=== PATIENT | female | born 1960 | race Caucasian/White ===

== ENCOUNTER → 2018-12-10 | Outpatient (CLI) | payer BC ==
--- NOTE | 2018-12-10 14:44 | US ---
EXAMINATION TYPE: US transvaginal DATE OF EXAM: 12/10/2018 COMPARISON: NONE CLINICAL HISTORY: N95.0 POST MENOPAUSAL, BLEEDING. 4 days of bleeding and cramping in october 2018, 0, history of uterine ablation. TECHNIQUE: Transvaginal exam. Date of LMP: 7 years ago EXAM MEASUREMENTS: Uterus: 7.4 x 3.2 x 4.8 cm Endometrial Stripe: 1.2 cm Right Ovary: not seen Left Ovary: not seen Difficult and limited study due to patient body habitus 1. Uterus: anteverted, heterogeneous, multiple nabothian cysts with largest measuring 1.9cm 2. Endometrium: thickened, fluid seen within endocervical canal 3. Right Ovary: not seen due to overlying bowel gas 4. Left Ovary: not seen due to overlying bowel gas 5. Bilateral Adnexa: wnl 6. Posterior cul-de-sac: wnl IMPRESSION: 1. Endometrial thickening. 2. Uterine myometrial heterogeneity may reflect small leiomyomatous change. 3. Cervical nabothian cysts.
== END ==
LOC: RADUSWWP 12:51
PROVIDERS: ATTEND Family Medicine
DX: N88.8 Other specified noninflammatory disorders of cervix uteri (principal); R93.89 Abnormal findings on diagnostic imaging of other specified body structures
CPT/HCPCS: 76830

== ENCOUNTER 2019-03-08 06:37 | Day surgery (SDC) | payer BC ==
[2019-03-03 11:54] VITALS: BMI 57.6
--- NOTE | 2019-03-07 16:14 | P.HPOB ---
History of Present Illness H&P Date: 03/07/19 Chief Complaint: Postmenopausal bleeding with thickened endometrium Nessa is a 5-year-old female with some postmenopausal bleeding and history of simple hyperplasia. Ultrasound done in October showed a 1.2 semireclining therefore a D&C with hysteroscopy or without hysteroscopy depending on ability to cannulate the cervix will be performed. Risks/benefits/alternatives to this procedure were discussed with the patient in detail and all questions were answered for her prior to proceeding to the operative room. On physical exam this is a morbidly obese female whose HEENT is unremarkable. Her heart is regular her lungs are clear. Abdomen is soft and nontender positive bowel sounds are noted. She did receive surgical clearance from her primary care provider Dr. Cohen. All questions are answered for her at this time and will plan to move forward with a D&C with or without hysteroscopy depending on positioning. Past Medical History Past Medical History: Hypertension, Osteoarthritis (OA), Sleep Apnea/CPAP/BIPAP Additional Past Medical History / Comment(s): hx. heart murmur, uses CPAP, poss. colitis History of Any Multi-Drug Resistant Organisms: None Reported Additional Past Surgical History / Comment(s): D & C Past Anesthesia/Blood Transfusion Reactions: No Reported Reaction Smoking Status: Never smoker - Past Family History Sister(s) Family Medical History: Cancer Medications and Allergies Home Medications Medication Instructions Recorded Confirmed Type Allopurinol [Zyloprim] 300 mg PO DAILY 03/03/19 03/03/19 History Celecoxib [CeleBREX] 200 mg PO DAILY 03/03/19 03/03/19 History Escitalopram [Lexapro] 20 mg PO DAILY 03/03/19 03/03/19 History Metaxalone [Skelaxin] 400 mg PO DAILY PRN 03/03/19 03/03/19 History Metoprolol Succinate (ER) [Toprol 50 mg PO DAILY 03/03/19 03/03/19 History Xl] Allergies Allergy/AdvReac Type Severity Reaction Status Date / Time No Known Allergies Allergy Verified 03/03/19 10:32 Exam Osteopathic Statement: *. No significant issues noted on an osteopathic structural exam other than those noted in the History and Physical/Consult.
[~2019-03-08 06:37] MED LIST: DEXAMETHASONE SOD PHOSPHATE 10 MG/ML 1 ML VIAL IV ONE; HYDROmorphone 0.5 MG/0.5 ML SYRINGE IVP PRN; LACTATED RINGERS 1,000 ML IV SCH; MIDAZOLAM (PF) 2 MG/2 ML VIAL IV PRN; ONDANSETRON 4 MG/2 ML VIAL IVP ONE; Pre Op ABX Message 1 EACH MISC MISCELLANE ONE; SCOPOLAMINE 1.5MG/72HR PATCH TRANSDERM ONE
[2019-03-08 07:07] VITALS: RESP 16
[2019-03-08] MEDS ORDERED: LIDOCAINE 1% 20 ML VIAL (10MG/ML) FOR IV START INTRADERMA ONE (07:12)
[2019-03-08] MEDS ORDERED: KETOROLAC 30 MG/ML 1 ML VIAL ONE (08:03)
[2019-03-08] MEDS ORDERED: fentaNYL (PF) 50 MCG/ML 2 ML AMP ONE (08:03)
[2019-03-08] MEDS ORDERED: LIDOCAINE 1% INJ 10MG/ML (20 ML MDV) ONE (08:03)
[2019-03-08] MEDS ORDERED: PROPOFOL 10 MG/ML 20 ML VIAL IV ONE (08:03)
[2019-03-08] MEDS ORDERED: MIDAZOLAM 2 MG/2 ML VIAL ONE (08:03)
[2019-03-08] MEDS ORDERED: SUCCINYLCHOLINE CHLORIDE VIAL 200 MG/10 ML VIAL IV ONE (08:03)
--- NOTE | 2019-03-08 08:34 | P.OP ---
Date of Procedure: 03/08/19 Preoperative Diagnosis: Postmenopausal bleeding Postoperative Diagnosis: same Procedure(s) Performed: D&C with Pap smear Anesthesia: GIGI Surgeon: Sulaiman Valle Estimated Blood Loss (ml): 5 Pathology: other (Pap smear and uterine curettings) Condition: stable Disposition: same day Operative Findings: Morbidly obese making the exam very difficult and due to positioning issues and need for some speak with the surgery hysteroscopy was not performed Description of Procedure: Patient was taken to the operating suite where general anesthetic was found be adequate. She was prepped and draped in normal sterile fashion and placed in dorsal lithotomy position. Initially a speculum was inserted into the vagina and a serial tooth tenaculum was used to grasp the anterior lip of cervix a Pap smear was then obtained with ECC. Once this was accomplished cervix was dilated and sharp curettings of the endometrium were obtained. All tissues collected placed on Telfa and sent to pathology for evaluation. Due to her morbid obesity and difficulty positioning as well as my concern over her being on a ventilator for an extended period time a hysteroscopy was not performed. Once procedure was completed instruments were removed. Sponge, lap, needle counts were all correct 2. Patient was then taken to the recovery room in stable and satisfactory condition. Plan - Discharge Summary Discharge Rx Participant: Yes New Discharge Prescriptions: No Action Metoprolol Succinate (ER) [Toprol Xl] 50 mg PO DAILY Escitalopram [Lexapro] 20 mg PO DAILY Celecoxib [CeleBREX] 200 mg PO DAILY Allopurinol [Zyloprim] 300 mg PO DAILY Metaxalone [Skelaxin] 400 mg PO DAILY PRN PRN Reason: Muscle Spasm Discharge Medication List Allopurinol [Zyloprim] 300 mg PO DAILY 03/03/19 [History] Celecoxib [CeleBREX] 200 mg PO DAILY 03/03/19 [History] Escitalopram [Lexapro] 20 mg PO DAILY 03/03/19 [History] Metaxalone [Skelaxin] 400 mg PO DAILY PRN 03/03/19 [History] Metoprolol Succinate (ER) [Toprol Xl] 50 mg PO DAILY 03/03/19 [History] Follow up Appointment(s)/Referral(s): Sulaiman Valle DO [Doctor of Osteopathic Medicine] - 10 Days Activity/Diet/Wound Care/Special Instructions: No heavy lifting, limit stairs and driving, and pelvic rest. If any high temperatures, heavy bleeding, or severe pain call my office Discharge Disposition: HOME SELF-CARE
[2019-03-08 08:47] VITALS: TEMP 97.4
[2019-03-08 10:30] VITALS: BP 146/82
[2019-03-08 10:32] VITALS: PULSE 71
== END 2019-03-08 10:45 | disposition home or self-care (01) ==
LOC: OR 06:37
PROVIDERS: ATTEND Obstetrics & Gynecology
DX: N85.02 Endometrial intraepithelial neoplasia [EIN] (principal); E66.01 Morbid (severe) obesity due to excess calories; Z68.43 Body mass index [BMI] 50.0-59.9, adult; I10 Essential (primary) hypertension; M19.90 Unspecified osteoarthritis, unspecified site; G47.30 Sleep apnea, unspecified; Z99.89 Dependence on other enabling machines and devices; Z79.899 Other long term (current) drug therapy
CPT/HCPCS: 88305; 58120; J2250; J0330; J1100; J2405; J2001; J3010; J1885; J2704

== ENCOUNTER → 2019-05-05 | Outpatient (CLI) | payer BC ==
--- NOTE | 2019-05-05 11:44 | EST ---
EXERCISE STRESS DATE OF SERVICE: 05/05/2019 AGE: 59 SEX: Female HT: 62 WT: 315 PROTOCOL: Anthony STAGE: I DURATION OF EXERCISE: 3 minutes HEART RATE REST: 96 BLOOD PRESSURE REST: 158/89 MAXIMUM HEART RATE ACHIEVED: 146 MAXIMUM BLOOD PRESSURE: 184/85 85% MPHR: 136 100% MPHR: 160 METS: 2.2 INDICATIONS: Pre-op. CLINICAL INFORMATION: Baseline rhythm is sinus mechanism, rate of 96, normal axis and intervals, cannot exclude inferior myocardial infarction. Baseline blood pressure 158/89 mmHg. Patient exercised on Anthony protocol for 3 minutes reaching a peak rate 146 beats per minute which is equal to 91% maximum predicted heart rate. Peak blood pressure 184/85 mmHg. Test was terminated secondary to fatigue. There was no chest pain. Electrocardiograph monitoring revealed no evidence of diagnostic ischemic ST deviation. CONCLUSION: 1. Poor exercise tolerance. 2. No chest discomfort. 3. Normal electrocardiograph response to exercise with no evidence of exercise induced ischemia. MMODL / IJN: [id number] /
== END | disposition home or self-care (01) ==
LOC: RADNMMAIN 10:21
PROVIDERS: ATTEND Family Medicine
DX: Z01.818 Encounter for other preprocedural examination (principal); N85.00 Endometrial hyperplasia, unspecified
CPT/HCPCS: 93017

== ENCOUNTER → 2019-05-05 | Outpatient (CLI) | payer BC ==
--- NOTE | 2019-05-05 12:37 | XR ---
EXAMINATION TYPE: XR chest 2V DATE OF EXAM: 05/05/2019 COMPARISON: NONE TECHNIQUE: PA and lateral views submitted. HISTORY: Presurgical FINDINGS: The lungs are clear and there is no pneumothorax, pleural effusion, or focal pneumonia. Arthropathy of the AC joints. Hypertrophic and degenerative change of the spine. IMPRESSION: 1. No acute process.
--- NOTE | 2019-05-05 13:28 | CT ---
EXAMINATION TYPE: CT abdomen pelvis wo/w con DATE OF EXAM: 05/05/2019 COMPARISON: Ultrasound 2519 HISTORY: Endometriosis, Pre-op for hysterectomy CT DLP: 5024.3 mGycm Automated exposure control for dose reduction was used. CONTRAST: CT scan of the abdomen pelvis is performed without and with IV Contrast, patient injected with 100 mL of Isovue 300. FINDINGS- LUNG BASES- No significant abnormality is appreciated. LIVER/GB-there are small gallstones noted.. PANCREAS- No gross abnormality is seen. SPLEEN- No gross abnormality is seen. ADRENALS- No gross abnormality is seen. KIDNEYS/BLADDER- no hydronephrosis or nephrolithiasis. There is a lower pole right renal lesion measu ring 1.4 cm and measuring 10 Hounsfield units compatible with a simple cyst.. BOWEL- no bowel dilatation. Normal appendix. LYMPH NODES- No greater than 1cm abdominal or pelvic lymph nodes areappreciated. OSSEOUS STRUCTURES-hypertrophic and degenerative change of the vertebral column with vacuum disc and multilevel facet arthropathy.. OTHER- atherosclerotic changes aorta. No evidence of aneurysm. No free fluid. There is an anterior a bdominal wall hernia containing portions of colon. The uterus is somewhat lobulated is prominence of the endocervical canal. Endometrium is not seen by CT scan. IMPRESSION- 1. Uterine lower segment and endocervical canal are prominent. Correlate clinically. Endometrium is n ot seen by CAT scan. No pathologic adenopathy. 2. There is a anterior abdominal wall hernia containing a segment of the colon. No definite obstructi on correlate clinically. 3. Cholelithiasis.
== END | disposition home or self-care (01) ==
LOC: RADCTMAIN 10:32
PROVIDERS: ATTEND Obstetrics & Gynecology
DX: K43.9 Ventral hernia without obstruction or gangrene (principal); K80.20 Calculus of gallbladder without cholecystitis without obstruction; N85.00 Endometrial hyperplasia, unspecified
CPT/HCPCS: 71046; 74178; Q9967

== ENCOUNTER → 2019-06-30 | Outpatient (CLI) | payer BC ==
--- NOTE | 2019-06-30 14:12 | CT ---
EXAMINATION TYPE: CT abdomen wo con DATE OF EXAM: 06/30/2019 COMPARISON: 05/05/2019 HISTORY: Abdominal wall infection from umbilical hernia repair. CT DLP: 1666 mGycm Automated exposure control for dose reduction was used. TECHNIQUE: Helical acquisition of images was performed from the lung bases through the top of iliac crest to include entire abdomen. CONTRAST: Performed with Oral Contrast and without IV contrast. FINDINGS: LUNG BASES: No significant abnormality is appreciated. LIVER/GB: No significant abnormality is appreciated. Redemonstration of calcification near the nondep endent portion of the lower fundus, similar to 05/05/2019 PANCREAS: No significant abnormality is seen. SPLEEN: No significant abnormality is seen. ADRENALS: No significant abnormality is seen. KIDNEYS: No significant abnormality is seen. Stable inferior pole right kidney cyst. BOWEL: No significant abnormality is seen. LYMPH NODES: No significant abnormality is appreciated. OSSEOUS STRUCTURES: No significant abnormality is seen. FREE AIR: No free air is visualized. OTHER: Interval postsurgical changes of ventral wall abdominal hernia repair which is only partially visualized on the current exam. There is a midline surgical scar, but there does not appear to be any fluid collection. Mild thickening and fat stranding is seen of the most inferior portion of the ante rior rectus sheath. IMPRESSION: POSTSURGICAL CHANGES OF MITRAL WALL ABDOMINAL HERNIA REPAIR WHICH IS ONLY PARTIALLY VISUALIZED. NO EV IDENCE OF ABSCESS ON THE CURRENT FILMS, BUT MILD THICKENING AND STRANDING AT THE INFERIOR RECTUS VUONG TH. IF FURTHER EVALUATION IS REQUIRED CT OF THE PELVIS MAY BE PERFORMED.
== END | disposition home or self-care (01) ==
LOC: RADCTMAIN 12:27
PROVIDERS: ATTEND Surgery
DX: K62.89 Other specified diseases of anus and rectum (principal)
CPT/HCPCS: 74150

== ENCOUNTER 2019-11-29 07:49 | Day surgery (SDC) | payer BC, OTHER ==
[2019-11-28 08:11] VITALS: BMI 64.0
[~2019-11-29 07:49] MED LIST changes: -DEXAMETHASONE SOD PHOSPHATE 10 MG/ML 1 ML VIAL IV ONE; -HYDROmorphone 0.5 MG/0.5 ML SYRINGE IVP PRN; +LIDOCAINE 1% 20 ML VIAL (10MG/ML) FOR IV START INTRADERMA PRN; -MIDAZOLAM (PF) 2 MG/2 ML VIAL IV PRN; -ONDANSETRON 4 MG/2 ML VIAL IVP ONE; -Pre Op ABX Message 1 EACH MISC MISCELLANE ONE; -SCOPOLAMINE 1.5MG/72HR PATCH TRANSDERM ONE
[2019-11-29 08:42] VITALS: TEMP 97.9
[2019-11-29] MEDS ORDERED: PROPOFOL 10 MG/ML 20 ML VIAL IV ONE (09:54)
--- NOTE | 2019-11-29 10:33 | P.PCN ---
Date of Procedure: 11/29/19 Description of Procedure: BRIEF HISTORY: Patient is a 59-year-old female who presents for outpatient colonoscopy for screening malignant neoplasm colon. Patient denies any change in bowel habits, blood per rectum or abdominal pain. No prior colonoscopies reported. No family history of colon cancer. PROCEDURE PERFORMED: Colonoscopy with polypectomy . PREOPERATIVE DIAGNOSIS: Screening for malignant neoplasm colon, no prior colonoscopies reported. ESTIMATED BLOOD LOSS: Minimal. IV sedation per Anesthesia. PROCEDURE: After informed consent was obtained, the patient, was brought into the endoscopy unit. IV sedation was administered by Anesthesia under continuous monitoring. Digital rectal examination was normal. Initially the Olympus CF-190 flexible video colonoscope was then inserted in the rectum, gradually advanced into the cecum without any difficulty. Careful examination was performed as the scope was gradually being withdrawn. Ileocecal valve and the appendiceal orifice were visualized and appeared normal. Prep was excellent. Mucosa of the cecum, ascen ding colon, transverse colon, descending colon, sigmoid colon, and rectum appeared normal. A few scattered small diverticula noted in the sigmoid colon. Diminutive 2 mm descending colon polyp removed with cold forcep polypectomy. Diminutive 1 mm sigmoid polyp removed with cold forcep polypectomy. Flat 11 mm rectal polyp removed with cold snare polypectomy. Retroflexion was performed in the rectum and no lesions were seen. The patient tolerated the procedure well. IMPRESSION: 2 diminutive polyps removed with cold forceps from the descending colon and sigmoid colon. Flat rectal polyp removed with cold snare polypectomy. Mild sigmoid diverticulosis. RECOMMENDATIONS: Findings of this examination were discussed with the patient and her sister. Okay to resume diet and medications. Await pathology from polypectomies. Would recommend repeat colonoscopy in 3 years given high-risk colon polyps, pending pathology from polypectomies.
[2019-11-29 11:05] VITALS: BP 163/79; PULSE 72; RESP 20
== END 2019-11-29 11:27 | disposition home or self-care (01) ==
LOC: ORWHC2ENDO 07:49
PROVIDERS: ATTEND Internal Medicine
DX: Z12.11 Encounter for screening for malignant neoplasm of colon (principal); K63.5 Polyp of colon; D12.8 Benign neoplasm of rectum; I10 Essential (primary) hypertension; G47.33 Obstructive sleep apnea (adult) (pediatric); F32.9 Major depressive disorder, single episode, unspecified; K57.30 Diverticulosis of large intestine without perforation or abscess without bleeding; Z79.899 Other long term (current) drug therapy; Z90.710 Acquired absence of both cervix and uterus; Z98.890 Other specified postprocedural states
CPT/HCPCS: 88305; 45380; 45385; J2704

== ENCOUNTER → 2019-12-20 | Outpatient (CLI) | payer BC, OTHER ==
--- NOTE | 2019-12-20 08:38 | XR ---
EXAMINATION TYPE: XR chest 2V DATE OF EXAM: 12/20/2019 COMPARISON: Prior chest x-ray May 05, 2019. HISTORY: Endometrial cancer. TECHNIQUE: Frontal and lateral views of the chest are obtained. FINDINGS: Underlying emphysematous changes suspected with flattened hemidiaphragms and increased retr osternal airspace on lateral view. There is no suspicious new focal air space opacity, pleural effusi on, or pneumothorax seen. The cardiac silhouette size remains within normal limits. Multilevel disc space narrowing and spurring in the spine. IMPRESSION: No acute process. No significant change from prior.
--- NOTE | 2019-12-21 11:48 | MM ---
Reason for exam: screening (asymptomatic). Last mammogram was performed 3 years and 1 month ago. History: Patient is postmenopausal, has history of other cancer at age 58, and is nulliparous. Family history of premenopausal breast cancer in sister at age 52. Took hormonal contraceptives for 2 years beginning at age 21. Physical Findings: A clinical breast exam by your physician is recommended on an annual basis and results should be correlated with mammographic findings. MG 3D Screening Mammo W/Cad Bilateral CC and MLO view(s) were taken. Prior study comparison: November 11, 2016, bilateral MG screening mammo w CAD. November 13, 2014, bilateral MG screening mammo w CAD. There are scattered fibroglandular densities. No suspicious abnormality on the right breast. Left upper outer quadrant focal asymmetry and associated calcifications. ASSESSMENT: Incomplete: need additional imaging evaluation, BI-RAD 0 RECOMMENDATION: Special view mammogram of the left breast. If lesion persists on supplemental views, image directed ultrasound is recommended. [facility] will attempt to contact patient to return for supplemental views and ultrasound if indicated.
== END | disposition home or self-care (01) ==
LOC: RADMAMWWP 07:52
PROVIDERS: ATTEND Family Medicine
DX: Z12.31 Encounter for screening mammogram for malignant neoplasm of breast (principal); C54.1 Malignant neoplasm of endometrium
CPT/HCPCS: 71046; 77063; 77067

== ENCOUNTER → 2020-01-02 | Outpatient (CLI) | payer OTHER ==
--- NOTE | 2020-01-02 12:09 | CT ---
EXAMINATION TYPE: CT abdomen pelvis w con DATE OF EXAM: 01/02/2020 COMPARISON: 06/30/2019 HISTORY: Endometrial cancer CT DLP: 4306.1 mGycm CONTRAST: CT scan of the abdomen and pelvis is performed with Oral Contrast and with IV Contrast, patient injec huseyin with 100 mL of Isovue 300. FINDINGS: LUNG BASES-: No visible nodule. No infiltrate. LIVER/GB: Cholelithiasis noted. No space occupying hepatic lesion. Biliary tree is of normal calib er. PANCREAS: No inflammation. No distinct mass. SPLEEN: Splenomegaly measuring 14.2 cm craniocaudal dimension. No lesion seen. ADRENALS: No nodule. No thickening. KIDNEYS/BLADDER: No hydronephrosis. No nephrolithiasis. Hypoattenuating lesion lower pole right kid agustin is unchanged and measures 1.9 cm. Urinary bladder grossly unremarkable. BOWEL: Normal appendix. Normal bowel caliber. No inflammation. GENITAL ORGANS: Hysterectomy changes. Vaginal cuff is unremarkable. LYMPH NODES: No greater than 1cm abdominal or pelvic lymph nodes are appreciated. AORTA: No significant abnormality. OSSEOUS STRUCTURES: No significant abnormality is seen. OTHER: Postsurgical changes anterior abdominal wall at the level of the umbilicus. IMPRESSION: 1. No evidence for metastatic disease or recurrent disease.
== END | disposition home or self-care (01) ==
LOC: RADCTMAIN 09:50
PROVIDERS: ATTEND Obstetrics & Gynecology
DX: C54.1 Malignant neoplasm of endometrium (principal)
CPT/HCPCS: 74177; Q9967 ×2

== ENCOUNTER → 2020-01-02 | Outpatient (CLI) | payer OTHER ==
--- NOTE | 2020-01-03 07:58 | MM ---
Reason for exam: additional evaluation requested from abnormal screening. Last mammogram was performed less than 1 month ago. History: Patient is postmenopausal, has history of other cancer at age 58, and is nulliparous. Family history of premenopausal breast cancer in sister at age 52. Took hormonal contraceptives for 2 years beginning at age 21. Physical Findings: Nurse did not find any significant physical abnormalities on exam. MG 3D Work Up W/Cad LT CC with magnification, LM with magnification, and LM view(s) were taken of the left breast. Prior study comparison: December 20, 2019, bilateral MG 3d screening mammo w/cad. November 11, 2016, bilateral MG screening mammo w CAD. There are scattered fibroglandular densities. Grouped calcifications and vague asymmetric density on magnification CC becomes less defined and appears similar to 2016. Grouped round calcifications on the magnification LM view not clearly seen previously. 6 month follow up recommended. These results were verbally communicated with the patient and result sheet given to the patient on 01/02/20. ASSESSMENT: Probably benign, BI-RAD 3 RECOMMENDATION: Follow-up diagnostic mammogram of the left breast in 6 months.
== END | disposition home or self-care (01) ==
LOC: RADMAMWWP 13:35
PROVIDERS: ATTEND Family Medicine
DX: R92.8 Other abnormal and inconclusive findings on diagnostic imaging of breast (principal)
CPT/HCPCS: 77061; 77065

== ENCOUNTER → 2020-09-28 | Outpatient (CLI) | payer OTHER ==
--- NOTE | 2020-09-28 12:13 | XR ---
EXAMINATION TYPE: XR chest 2V DATE OF EXAM: 09/28/2020 COMPARISON: Prior chest x-ray 12/20/2019 HISTORY: Endometrial carcinoma TECHNIQUE: Frontal and lateral views of the chest are obtained. FINDINGS: There is no focal air space opacity, pleural effusion, or pneumothorax seen. The cardiac silhouette size is within normal limits. Prominent lung volumes may be indicative of underlying COPD . The osseous structures are intact, there is thoracic ankylosis. IMPRESSION: No acute cardiopulmonary process.
--- NOTE | 2020-09-28 14:07 | CT ---
EXAMINATION TYPE: CT abdomen pelvis w con DATE OF EXAM: 09/28/2020 COMPARISON: CT 01/02/2020 HISTORY: Endometrial CA, N85.00 CT DLP: 4616.2 mGycm Automated exposure control for dose reduction was used. TECHNIQUE: Helical acquisition of images from the lung bases through the pelvis have been completed. CONTRAST: Performed with Oral Contrast and with IV Contrast, patient injected with 100 mL of Isovue 300. FINDINGS: LUNG BASES: No significant abnormality is appreciated. AORTA: No significant abnormality is appreciated. LIVER/GB: No significant interval change is appreciated. The calcification at the level of the gallbl adder described on prior report is cholelithiasis probably represents calcification within the gallbl adder wall rather than gallstones. The liver shows low attenuation likely due to hepatic steatosis. T he liver is enlarged. PANCREAS: No significant abnormality is seen. SPLEEN: Enlarged ADRENALS: No significant abnormality is seen. KIDNEYS: No significant abnormality is seen. REPRODUCTIVE ORGANS: Not seen BOWEL: No significant abnormality is seen. FREE AIR: No Free Air visible. ASCITES: None visible. PELVIC ADENOPATHY: None visualized. RETROPERITONEAL ADENOPATHY: No Retroperitoneal Adenopathy visible. URINARY BLADDER: No significant abnormality is seen. OSSEOUS STRUCTURES: No significant interval change is seen, degenerative disc change and facet arthr opathy noted especially in the lower lumbar spine. IMPRESSION: NO EVIDENT RECURRENCE. HEPATOSPLENOMEGALY. FINDINGS SUGGEST P[place]CELAIN GALLBLADDER, CONSIDER SURGICAL CONSULT. HEPATOSPLENOMEGALY. HEPATIC STEATOSIS.
== END | disposition home or self-care (01) ==
LOC: RADCTMAIN 09:32
PROVIDERS: ATTEND Obstetrics & Gynecology
DX: R16.2 Hepatomegaly with splenomegaly, not elsewhere classified (principal); K76.0 Fatty (change of) liver, not elsewhere classified; C54.1 Malignant neoplasm of endometrium; N85.00 Endometrial hyperplasia, unspecified
CPT/HCPCS: 71046; 74177; Q9967 ×2

== ENCOUNTER 2023-01-28 09:18 | Inpatient (IN) | payer OTHER ==
[2023-01-28] MEDS ORDERED: VANCOMYCIN IV PER PHARMACY 1 EACH MISC MISCELLANE PRN (10:33)
[2023-01-28] MEDS ORDERED: PIPERACILLIN-TAZOBACTAM 3.375 GM in SODIUM CHLORIDE 0.9% 100 ML IVPB ONE (10:45)
[2023-01-28] MEDS ORDERED: NALOXONE 0.4 MG/ML 1 ML VIAL IV PRN (10:54)
--- NOTE | 2023-01-28 10:54 | ED ---
Skin/Abscess/FB HPI - General Chief complaint: Skin/Abscess/Foreign Body Stated complaint: Recheck Time Seen by Provider: 01/28/23 09:36 Source: patient, RN notes reviewed Mode of arrival: ambulatory Limitations: no limitations - History of Present Illness Initial comments: 62-year-old female presents emergency Department chief complaint of right foot infection. Patient states she's been dealing with this for several months. Patient states she was sent over by wound center for further evaluation and admission. Patient denies any increasing pain she states her is followed her and drainage from the site. Patient is currently on Bactrim - Related Data Home Medications Medication Instructions Recorded Confirmed Celecoxib [CeleBREX] 200 mg PO DAILY 03/03/19 11/29/19 Escitalopram [Lexapro] 20 mg PO DAILY 03/03/19 11/29/19 Metoprolol Succinate (ER) [Toprol 50 mg PO DAILY 03/03/19 11/29/19 Xl] allopurinoL [Zyloprim] 300 mg PO DAILY 03/03/19 11/29/19 buPROPion HCL [Wellbutrin XL] 300 mg PO DAILY 11/28/19 11/29/19 methocarbamoL [Robaxin] 500 mg PO BID 11/28/19 11/29/19 Allergies Allergy/AdvReac Type Severity Reaction Status Date / Time No Known Allergies Allergy Verified 01/28/23 09:32 Review of Systems ROS Statement: Those systems with pertinent positive or pertinent negative responses have been documented in the HPI. ROS Other: All systems not noted in ROS Statement are negative. Past Medical History Past Medical History: Cancer, Hypertension, Osteoarthritis (OA), Sleep Apnea/CPAP/BIPAP Additional Past Medical History / Comment(s): hx. heart murmur, uses CPAP, poss. colitis. UTERINE CANCER-MAY 2019-HAD HYSTERECTOMY History of Any Multi-Drug Resistant Organisms: None Reported Past Surgical History: Hysterectomy Additional Past Surgical History / Comment(s): D & C Past Anesthesia/Blood Transfusion Reactions: No Reported Reaction Past Psychological History: Depression Smoking Status: Never smoker Past Alcohol Use History: None Reported Past Drug Use History: None Reported - Past Family History Sister(s) Family Medical History: Cancer General Exam Limitations: no limitations General appearance: alert, in no apparent distress Head exam: Present: atraumatic, normocephalic, normal inspection Eye exam: Present: normal appearance, PERRL, EOMI. Absent: scleral icterus, conjunctival injection, periorbital swelling Respiratory exam: Present: normal lung sounds bilaterally. Absent: respiratory distress, wheezes, rales, rhonchi, stridor Cardiovascular Exam: Present: regular rate, normal rhythm, normal heart sounds. Absent: systolic murmur, diastolic murmur, rubs, gallop, clicks Extremities exam: Present: other (Right heel there is a large open and purulent wound with purulent drainage and foul order) Neurological exam: Present: alert Skin exam: Present: warm, dry, intact, normal color. Absent: rash Course Vital Signs 01/28/23 09:29 Temperature 98.1 F Pulse Rate 68 Respiratory 18 Rate Blood Pressure 113/69 O2 Sat by Pulse 98 Oximetry Medical Decision Making - Medical Decision Making Was pt. sent in by a medical professional or institution (Dr. PA, STRATIGRAPHY TEACHER, urgent care, hospital, or long term...) When possible be specific @ -[Wound Center physician sent over for admission] Did you speak to anyone other than the patient for history (EMS, parent, family, police, friend...)? What history was obtained from this source @ -[No] Did you review nursing and triage notes (agree or disagree)? Why? @ -[I reviewed and agree with nursing and triage notes] Were old charts reviewed (outside hosp., previous admission, EMS record, old EKG, old radiological studies, urgent care reports/EKG's, long term records)? Report findings @ -[No old charts were reviewed] Differential Diagnosis (chest pain, altered mental status, abdominal pain women, abdominal pain men, vaginal bleeding, weakness, fever, dyspnea, syncope, headache, dizziness, GI bleed, back pain, seizure, CVA, palpatations, mental health, musculoskeletal)? @ -[Right foot infection, cellulitis, osteomyelitis, diabetic ulceration] EKG interpreted by me (3pts min.). @ -[As above] X-rays interpreted by me (1pt min.). @ -[None done] CT interpreted by me (1pt min.). @ -[None done] U/S interpreted by me (1pt. min.). @ -[None done] What testing was considered but not performed or refused? (CT, X-rays, U/S, labs)? Why? @ -[None] What meds were considered but not given or refused? Why? @ -[None] Did you discuss the management of the patient with other professionals (professionals i.e. , PA, STRATIGRAPHY TEACHER, lab, RT, psych nurse, social media community manager, engineering technology instructor, teacher, adult probation officer, case making machine operator)? Give summary @ -[Dr. Ching for admission with consult to infectious disease, wound care] Was smoking cessation discussed for >3mins.? @ -[No] Was critical care preformed (if so, how long)? @ -[No] Were there social determinants of health that impacted care today? How? (Homelessness, low income, unemployed, alcoholism, drug addiction, transportation, low edu. Level, literacy, decrease access to med. care, snf, rehab)? @ -[No] Was there de-escalation of care discussed even if they declined (Discuss DNR or withdrawal of care, Hospice)? DNR status @ -[No] What co-morbidities impacted this encounter? (DM, HTN, Smoking, COPD, CAD, Cancer, CVA, ARF, Chemo, Hep., AIDS, mental health diagnosis, sleep apnea, morbid obesity)? @ -[Diabetes, obesity] Was patient admitted / discharged? Hospital course, mention meds given and route, prescriptions, significant lab abnormalities, going to OR and other pertinent info. @ -[Admitted to the hospital for further treatment, IV antibiotics and treatment of her right foot infection] Undiagnosed new problem with uncertain prognosis? @ -[No] Drug Therapy requiring intensive monitoring for toxicity (Heparin, Nitro, Insulin, Cardizem)? @ -[No] Were any procedures done? @ -[No] Diagnosis/symptom? @ -[Right foot ulceration, cellulitis] Acute, or Chronic, or Acute on Chronic? @ -[Acute Uncomplicated (without systemic symptoms) or Complicated (systemic symptoms)? @ -[Uncomplicated] Side effects of treatment? @ -[No] Exacerbation, Progression, or Severe Exacerbation? @ -[No] Poses a threat to life or bodily function? How? (Chest pain, [place], [place], pneumonia, PE, COPD, DKA, ARF, appy, cholecystitis, CVA, Diverticulitis, Homicidal, Suicidal, threat to staff... and all critical care pts) @ -[No] Disposition Clinical Impression: Right foot ulcer, Cellulitis of right foot Disposition: ADMITTED IP TO THIS HOSP Condition: Fair Referrals: Melita Cohen MD [Primary Care Provider] - 1-2 days Time of Disposition: 10:54
[2023-01-28] MEDS ORDERED: VANCOMYCIN 2,500 MG in SODIUM CHLORIDE 0.9% 500 ML 500 ML IVPB ONE (11:00)
--- NOTE | 2023-01-28 11:00 | XR ---
EXAMINATION TYPE: XR foot limited RT DATE OF EXAM: 01/28/2023 COMPARISON: NONE HISTORY: 61-year-old female right foot infection, pain TECHNIQUE: 2 views FINDINGS: There is marked diffuse soft tissue swelling. No soft tissue air or retained radiopaque for eign body seen. Mild degenerative change first MTP joint. Mild hammertoes. [id number] sized pl amy heel spur. There appears to be a soft tissue ulcer along the plantar aspect of the heel. No und erlying osseous erosion is seen. There are tibia type II accessory navicular versus bony superimposit ion shadow. IMPRESSION: 1. Marked generalized soft tissue swelling suggesting cellulitis. There appears to be a plantar ulcer at the heel. No radiographic evidence for osteomyelitis at this time. 2. Type II accessory navicular, mild first MTP joint OA, and mild hammertoes.
[2023-01-28 11:16] LABS: Basophils # (A) 0.1 k/uL (0-0.2); Basophils % (A) 1 %; Eosinophils # (A) 0.1 k/uL (0-0.7); Eosinophils % (A) 1 %; HCT 33.1 % (34.0-46.0); HGB 11.4 gm/dL (11.4-16.0); Lymphocytes # (A) 1.2 k/uL (1.0-4.8); Lymphocytes % (A) 12 %; MCH 33.1 pg (25.0-35.0); MCHC 34.3 g/dL (31.0-37.0); MCV 96.7 fL (80.0-100.0); Mean Platelet Volume 8.6; Monocytes # (A) 0.3 k/uL (0-1.0); Monocytes % (A) 4 %; Neutrophils # (A) 7.7 k/uL (1.3-7.7); Neutrophils % (A) 81 %; Platelet Count 229 k/uL (150-450); RBC 3.43 m/uL (3.80-5.40); RDW 15.8 % (11.5-15.5); WBC 9.5 k/uL (3.8-10.6)
[2023-01-28 11:40] LABS: Albumin 4.2 g/dL (3.5-5.0); C Reactive Protein 2.8 mg/dL (<1.0); Calcium 9.2 mg/dL (8.4-10.2); Potassium 3.6 mmol/L (3.5-5.1); Total Bilirubin 0.4 mg/dL (0.2-1.3); Total Protein 6.8 g/dL (6.3-8.2)
--- NOTE | 2023-01-28 11:50 | P.HPIM ---
History of Present Illness H&P Date: 01/28/23 Chief Complaint: Nonhealing wound failed outpatient treatment This is a 62-year-old female patient of Dr. Cohen who presented with concerns of nonhealing wounds to right heel. Patient was sent to ER via wound care clinic. Patient reports that she has been dealing with this wound for approximately 6 months without any improvement. Patient has been on outpatient antibiotics. Patient has past medical history of uterine cancer in May 2019 with hysterectomy, hypertension, osteoarthritis and depression. For x-ray completed showing marked generalized soft tissue swelling suggesting cellulitis this appears to be a plantar ulcer no radiographic evidence of osteo-myelitis at this time. WBC 9.5. Creatinine 1.5 for about 31 this does appear chronic for patient. Patient denies being diabetic will check hemoglobin A1c. Patient started on Zosyn and vancomycin. Infectious disease and wound care service is consulted. Current vital signs of 98.1, heart rate 68, respiratory rate 18 blood pressure 113/69 with a pulse ox 98% on room air Review of Systems Please refer to HPI otherwise unremarkable Past Medical History Past Medical History: Cancer, Hypertension, Osteoarthritis (OA), Sleep Apnea/CPA P/BIPAP Additional Past Medical History / Comment(s): hx. heart murmur, uses CPAP, poss. colitis. UTERINE CANCER-MAY 2019-HAD HYSTERECTOMY History of Any Multi-Drug Resistant Organisms: None Reported Past Surgical History: Hysterectomy Additional Past Surgical History / Comment(s): D & C Past Anesthesia/Blood Transfusion Reactions: No Reported Reaction Past Psychological History: Depression Smoking Status: Never smoker Past Alcohol Use History: None Reported Past Drug Use History: None Reported - Past Family History Sister(s) Family Medical History: Cancer Medications and Allergies Home Medications Medication Instructions Recorded Confirmed Type Celecoxib [CeleBREX] 200 mg PO BID 03/03/19 01/28/23 History Escitalopram [Lexapro] 20 mg PO DAILY 03/03/19 01/28/23 History Metoprolol Succinate (ER) [Toprol 150 mg PO DAILY 03/03/19 01/28/23 History Xl] allopurinoL [Zyloprim] 300 mg PO DAILY 03/03/19 01/28/23 History methocarbamoL [Robaxin] 500 mg PO BID 11/28/19 01/28/23 History Furosemide [Lasix] 40 mg PO BID 01/28/23 01/28/23 History Potassium Chloride ER [K-Dur 20] 20 meq PO BID 01/28/23 01/28/23 History metOLazone [Zaroxolyn] 2.5 mg PO DAILY 01/28/23 01/28/23 History Allergies Allergy/AdvReac Type Severity Reaction Status Date / Time No Known Allergies Allergy Verified 01/28/23 11:03 Physical Exam Vitals: Vital Signs Temp Pulse Resp BP Pulse Ox 01/28/23 09:29 98.1 F 68 18 113/69 98 Intake and Output 01/27/23 01/28/23 01/28/23 22:59 06:59 14:59 Other: Weight 147.418 kg Head normocephalic Neck supple Lungs clear to auscultation bilaterally no wheezing or crackles Heart regular rate and rhythm S1-S2, no rub or gallop Abdomen is soft nontender nondistended positive bowel sounds no h epatosplenomegaly Extremities no edema. Large quarter size unstageable also to right heel. Erythema noted to quintana Neuro alert and orientated to 3 Results CBC & Chem 7: 01/28/23 10:58 01/28/23 10:58 Labs: Abnormal Lab Results - Last 24 Hours (Table) 01/28/23 01/28/23 Range/Units 10:58 10:58 RBC 3.43 L (3.80-5.40) m/uL Hct 33.1 L (34.0-46.0) % RDW 15.8 H (11.5-15.5) % BUN 31 H (7-17) mg/dL Creatinine 1.54 H (0.52-1.04) mg/dL Glucose 166 H (74-99) mg/dL C-Reactive Protein 2.8 H (<1.0) mg/dL Assessment and Plan Assessment: 1. Right foot ulcer with failed outpatient treatment 2. Cellulitis to right lower extremity 3. History of uterine cancer in 2019 with hysterectomy 4. History of osteoarthritis 5. History of essential hypertension 6. History of sleep apnea 7. History of depression DVT prophylaxis Lovenox. GI prophylaxis Protonix Blood culture ordered Foot x-ray negative for osteomyelitis Repeat labs ordered Infectious disease and wound care service is consulted Time with Patient: Greater than 30 (Greater than 60% of the total time spent in counseling and coordination of care)
[2023-01-28] MEDS ORDERED: AMPICILLIN-SULBACTAM 3 GM in SODIUM CHLORIDE 0.9% 100 ML IVPB SCH (13:00)
--- NOTE | 2023-01-28 13:16 | P.CONS ---
History of Present Illness - Reason for Consult Consult date: 01/28/23 Right foot infection Requesting physician: Casper Alonzo - Chief Complaint Worsening right foot wound x few days - History of Present Illness Patient is a 62-year-old female with a past medical history significant for hypertension history of uterine cancer status post hysterectomy in May 2019 Osteoarthritis patient did develop a wound on the right heel area about 3 weeks ago patient is not very clear how did she develop that wound and has been following at [facility] wound care center, the patient was seen in the wound care center today and has been sent to the area concerning for worsening right lower extremity cellulitis and wound infection for the patient has been treated with the Bactrim without any improvement. On today's evaluation that is 01/28/2023, the patient denies having any fever or any chills and no fever have been recorded in the ER, patient apparently did have a decrease in swelling redness right lower extremity with the patient mentioned has been kind of chronic for her the patient denies having any worsening pain to the right heel area or any foul-smelling drainage, on arrival to the patient did have a normal white count the record has been mildly elevated patient did have x-ray of the right foot which did show marked generalized soft tissue swelling suggesting cellulitis there appears to be plantar ulcer the heel no radiographic evidence of osteomyelitis at this time the patient was started on vancomycin and Zosyn and infectious disease was consulted for further management of antibiotic therapy Review of Systems Positive point has been mentioned in the HPI rest of the systems are negative Past Medical History Past Medical History: Cancer, Hypertension, Osteoarthritis (OA), Sleep Apnea/CPAP/BIPAP Additional Past Medical History / Comment(s): hx. heart murmur, uses CPAP, poss. colitis. UTERINE CANCER-MAY 2019-HAD HYSTERECTOMY History of Any Multi-Drug Resistant Organisms: None Reported Past Surgical History: Hysterectomy Additional Past Surgical History / Comment(s): D & C Past Anesthesia/Blood Transfusion Reactions: No Reported Reaction Past Psychological History: Depression Smoking Status: Never smoker Past Alcohol Use History: None Reported Past Drug Use History: None Reported - Past Family History Sister(s) Family Medical History: Cancer Medications and Allergies Home Medications Medication Instructions Recorded Confirmed Type Celecoxib [CeleBREX] 200 mg PO BID 03/03/19 01/28/23 History Escitalopram [Lexapro] 20 mg PO DAILY 03/03/19 01/28/23 History Metoprolol Succinate (ER) [Toprol 150 mg PO DAILY 03/03/19 01/28/23 History XL] allopurinoL [Zyloprim] 300 mg PO DAILY 03/03/19 01/28/23 History methocarbamoL [Robaxin] 500 mg PO BID 11/28/19 01/28/23 History Furosemide [Lasix] 40 mg PO BID 01/28/23 01/28/23 History Potassium Chloride ER [K-Dur 20] 20 meq PO BID 01/28/23 01/28/23 History metOLazone [Zaroxolyn] 2.5 mg PO DAILY 01/28/23 01/28/23 History Amoxic-Pot Clav 875-125Mg 1 tab PO Q12HR 10 Days #20 tab 01/31/23 Rx [Augmentin 875-125] Allergies Allergy/AdvReac Type Severity Reaction Status Date / Time No Known Allergies Allergy Verified 01/28/23 11:03 Physical Exam Vitals: Vital Signs Temp Pulse Resp BP Pulse Ox 01/28/23 09:29 98.1 F 68 18 113/69 98 Intake and Output 01/27/23 01/28/23 01/28/23 22:59 06:59 14:59 Other: Weight 147.418 kg GENERAL DESCRIPTION: Middle-aged female lying in bed, no distress. No tachypnea or accessory muscle of respiration use. HEENT: Shows Pallor , no scleral icterus. Oral mucous membrane is dry. No pharyngeal erythema or thrush NECK: Trachea central, no thyromegaly. LUNGS: Unlabored breathing. Clear to auscultation anteriorly. No wheeze or crackle. HEART: S1, S2, regular rate and rhythm. No loud murmur ABDOMEN: Soft, no tenderness , guarding or rigidity, no organomegaly EXTREMITIES: Right lower extremity has swelling some redness and mild warmth to touch patient did have a wound on the right heel which was not probing down to the bone SKIN: No rash, no masses palpable. NEUROLOGICAL: The patient is awake, alert, oriented x3, mood and affect normal. Results CBC & Chem 7: 01/31/23 04:48 01/31/23 04:48 Labs: Abnormal Lab Results - Last 24 Hours (Table) 01/28/23 Range/Units 10:58 RBC 3.43 L (3.80-5.40) m/uL Hct 33.1 L (34.0-46.0) % RDW 15.8 H (11.5-15.5) % Assessment and Plan (1) Cellulitis of right foot Status: Acute Code(s): L03.115 - CELLULITIS OF RIGHT LOWER LIMB SNOMED Code(s): 260686110 (2) Right foot ulcer Status: Acute Code(s): L97.519 - NON-PRS CHRONIC ULCER OTH PRT RIGHT FOOT W UNSP SEVERITY SNOMED Code(s): 670684140 Plan: 1patient with a right heel infected pressure ulcer with secondary cellulitis involving the right lower extremity failing outpatient oral Bactrim DS therapy 2patient with the mild renal insufficiency and high risk of nephrotoxicity from vancomycin and Zosyn combination 3-local wound culture has been obtained regarding further antibiotic therapy 4discontinue Zosyn and start the patient on Unasyn continue with the vancomycin while watching her kidney function closely We will follow on clinical condition and cultures to further adjust medication if needed Thank you for this consultation will follow this patient with you Time with Patient: Greater than 30
[2023-01-28] MEDS: AMPICILLIN-SULBACTAM 3 GM in SODIUM CHLORIDE 0.9% 100 ML IVPB SCH ×3 (16:41→23:30)
[2023-01-28] MEDS: FUROSEMIDE 40 MG TAB PO SCH (16:53)
[2023-01-28] MEDS ORDERED: PIPERACILLIN-TAZOBACTAM 3.375 GM in SODIUM CHLORIDE 0.9% 100 ML IVPB SCH (20:00)
[2023-01-28] MEDS: POTASSIUM CHLORIDE ER 20 MEQ TAB.ER PO SCH (20:51)
[2023-01-28] MEDS: methocarbamoL 500 MG TAB PO SCH (20:51)
[2023-01-29] MEDS: PANTOPRAZOLE 40 MG TABLET PO SCH (06:22)
[2023-01-29] MEDS: POTASSIUM CHLORIDE ER 20 MEQ TAB.ER PO SCH ×2 (09:11→20:27)
[2023-01-29] MEDS: FUROSEMIDE 40 MG TAB PO SCH ×2 (09:11→16:22)
[2023-01-29] MEDS: METOPROLOL SUCCINATE (ER) 50 MG TAB.ER.24H PO SCH (09:11)
[2023-01-29] MEDS: allopurinoL 300 MG TAB PO SCH (09:11)
[2023-01-29] MEDS: ESCITALOPRAM 20 MG TAB PO SCH (09:12)
[2023-01-29] MEDS: metOLazone 2.5 MG TAB PO SCH (09:12)
[2023-01-29] MEDS: methocarbamoL 500 MG TAB PO SCH ×2 (09:12→20:27)
[2023-01-29] MEDS: AMPICILLIN-SULBACTAM 3 GM in SODIUM CHLORIDE 0.9% 100 ML IVPB SCH ×3 (09:12→23:58)
[2023-01-29] MEDS: ENOXAPARIN 40 MG/0.4 ML SYRINGE SQ SCH (09:12)
[2023-01-29 09:33] LABS: Basophils # (A) 0.04 X 10*3/uL (0.00-0.10); Basophils % (A) 0.5 %; Eosinophils # (A) 0.15 X 10*3/uL (0.04-0.35); Eosinophils % (A) 1.8 %; HGB 9.8 g/dL (12.0-15.0); Immature Grans, Automated 1.1 %; Lymphocytes # (A) 1.49 X 10*3/uL (0.90-5.00); Lymphocytes % (A) 18.3 %; MCH 32.6 pg (27.0-32.0); MCHC 32.7 g/dL (32.0-37.0); MCV 99.7 fL (80.0-97.0); Mean Platelet Volume 10.6 fL (9.5-12.2); Monocytes # (A) 0.58 X 10*3/uL (0.20-1.00); Monocytes % (A) 7.1 %; NRBC Per 100 WBC 0 /100 WBCS (0.0-0.0); Neutrophils # (A) 5.78 X 10*3/uL (1.80-7.70); Neutrophils % (A) 71.2 %; Platelet Count 190 X 10*3/uL (140-440); RBC 3.01 X 10*6/uL (4.10-5.20); RDW 15.3 % (11.5-14.5); WBC 8.13 X 10*3/uL (4.50-10.00)
[2023-01-29 10:11] LABS: African American GFR (CKD) 49.6 (60.0-200.0); Albumin 3.7 g/dL (3.8-4.9); Albumin/Globulin Ratio 1.7 (1.60-3.17); Anion Gap 11.9 mmol/L (10.00-18.00); BUN/Creat Ratio 18.94 Ratio (12.00-20.00); Calcium 8.9 mg/dL (8.7-10.3); Carbon Dioxide 27.2 mmol/L (20.0-27.5); Globulin 2.2 g/dL (1.6-3.3); Non-African American GFR(CKD) 42.8 (60.0-200.0); Potassium 3.7 mmol/L (3.5-5.5); Total Bilirubin 0.2 mg/dL (0.30-1.20); Total Protein 5.8 g/dL (6.2-8.2)
--- NOTE | 2023-01-29 12:12 | P.CONS ---
History of Present Illness - Reason for Consult Consult date: 01/29/23 wound care - History of Present Illness This is a 62-year-old patient with past medical history significant for hypertension, sleep apnea, uterine cancer, and diabetes. Patient is lifelong nonsmoker Patient was seen in the wound care center yesterday where she was found to have inability to offload. Due to her size and difficulty and offloading it was discussed for her to be admitted inpatient for admission to an extended care facility to help assist with offloading to enable the ulcer to heal. Original cause of wound was Pressure Injury. The date acquired was: 07/07/2022. The wound has been in treatment 3 weeks. The wound is currently classified as a Grade 2 wound with etiology of Diabetic Wound/Ulcer of the Lower Extremity and is located on the Right,Lateral Calcaneus. The wound measures 1.9cm length x 2.4cm width x 0.5cm depth; 3.581cm^2 area and 1.791cm^3 volume. There is Fat Layer (Subcutaneous Tissue) exposed. There is no tunneling or undermining noted. There is a medium amount of serous drainage noted. The wound margin is distinct with the outline attached to the wound base. There is large (67-100%) red, pink granulation within the wound bed. There is a small (1-33%) amount of necrotic tissue within the wound bed including Adherent Slough. The periwound skin appearance exhibited: Callus, Dry/Scaly, Maceration, Hemosiderin Staining. The periwound skin appearance did not exhibit: Atrophie Reanna, Cyanosis, Ecchymosis, Mottled, Pallor, Rubor, Erythema. Periwound temperature was noted as No Abnormality. Review Of Systems: Constitutional: No fever, no chills, no night sweats. No weight change. No weakness, fatigue or lethargy. No daytime sleepiness. Integumentary:reports wounds, no lesions. No rash or pruritus. No unusual bruising. No change in hair or nails. Physical exam: General Appearance: Alert, cooperative, no distress, appears stated age. Skin: See HPI all other Skin color, texture, tugor normal, no rashes or lesions. Neurologic: Alert oriented x3 Assessment: 1. Nonpressure chronic ulcer of other part of right foot with fatty layer exposure 2. Diabetic foot ulcer 3. Lymphedema 4. Obesity Plan: 1. Applied absorptive silver, family was gauze, dry gauze, rolled gauze and secure with paper tape. Change mentioned Thursday. Patient returned to the wound care center on February 04 at 8:30 Thank you for the consultation any questions contact the wound care center. DNP note has been reviewed and discussed with Dr. Ruiz and the impression and plan of care has been directed as dictated. Past Medical History Past Medical History: Cancer, Hypertension, Osteoarthritis (OA), Sleep Apnea/CPAP/BIPAP Additional Past Medical History / Comment(s): hx. heart murmur, uses CPAP, poss. colitis. UTERINE CANCER-MAY 2019-HAD HYSTERECTOMY History of Any Multi-Drug Resistant Organisms: None Reported Past Surgical History: Hysterectomy Additional Past Surgical History / Comment(s): D & C Past Anesthesia/Blood Transfusion Reactions: No Reported Reaction Past Psychological History: Depression Smoking Status: Never smoker Past Alcohol Use History: None Reported Past Drug Use History: None Reported - Past Family History Sister(s) Family Medical History: Cancer Medications and Allergies Home Medications Medication Instructions Recorded Confirmed Type Celecoxib [CeleBREX] 200 mg PO BID 03/03/19 01/28/23 History Escitalopram [Lexapro] 20 mg PO DAILY 03/03/19 01/28/23 History Metoprolol Succinate (ER) [Toprol 150 mg PO DAILY 03/03/19 01/28/23 History Xl] allopurinoL [Zyloprim] 300 mg PO DAILY 03/03/19 01/28/23 History methocarbamoL [Robaxin] 500 mg PO BID 11/28/19 01/28/23 History Furosemide [Lasix] 40 mg PO BID 01/28/23 01/28/23 History Potassium Chloride ER [K-Dur 20] 20 meq PO BID 01/28/23 01/28/23 History metOLazone [Zaroxolyn] 2.5 mg PO DAILY 01/28/23 01/28/23 History Allergies Allergy/AdvReac Type Severity Reaction Status Date / Time No Known Allergies Allergy Verified 01/28/23 11:03 Physical Exam Vitals: Vital Signs Temp Pulse Pulse Pulse Resp BP BP 01/29/23 07:47 97.6 F 73 18 129/69 01/29/23 02:07 97.5 F L 77 18 142/53 01/28/23 20:00 80 20 01/28/23 18:35 97.6 F 80 20 134/67 01/28/23 18:03 983.1 F H 66 18 130/65 Pulse Ox 01/29/23 07:47 94 L 01/29/23 02:07 94 L 01/28/23 20:00 01/28/23 18:35 99 01/28/23 18:03 98 Intake and Output 01/28/23 01/29/23 01/29/23 22:59 06:59 14:59 Intake Total 100 Balance 100 Intake: Oral 100 Other: # Voids 3 Weight 147.418 kg Results CBC & Chem 7: 01/29/23 04:39 01/29/23 04:39 Labs: Abnormal Lab Results - Last 24 Hours (Table) 01/28/23 01/29/23 01/29/23 Range/Units 10:58 04:39 04:39 RBC 3.01 L (4.10-5.20) X 10*6/uL Hgb 9.8 L (12.0-15.0) g/dL Hct 30.0 L (37.2-46.3) % MCV 99.7 H (80.0-97.0) fL MCH 32.6 H (27.0-32.0) pg RDW 15.3 H (11.5-14.5) % Immature Gran # 0.09 H (0.00-0.04) X 10*3/uL Est GFR (CKD-EPI)AfAm 49.6 L (60.0-200.0) Est GFR (CKD-EPI)NonAf 42.8 L (60.0-200.0) Glucose 125 H (70-110) mg/dL Hemoglobin A1c 6.5 H (0.0-6.0) % Total Bilirubin 0.20 L (0.30-1.20) mg/dL Total Protein 5.8 L (6.2-8.2) g/dL Albumin 3.7 L (3.8-4.9) g/dL Microbiology - Last 24 Hours (Table) 01/28/23 11:54 Gram Stain - Preliminary Foot - Right Wound Culture - Preliminary Assessment and Plan (1) Non-pressure chronic ulcer of other part of right foot with fat layer exposed Current Visit: Yes Status: Acute Code(s): L97.512 - NON-PRS CHRONIC ULCER OTH PRT RIGHT FOOT W FAT LAYER EXPOSED SNOMED Code(s): 16088833256752563 (2) Type 2 diabetes mellitus with foot ulcer Current Visit: Yes Status: Acute Code(s): E11.621 - TYPE 2 DIABETES MELLITUS WITH FOOT ULCER; L97.509 - NON-PRESSURE CHRONIC ULCER OTH PRT UNSP FOOT W UNSP SEVERITY SNOMED Code(s): 245057631 (3) Lymphedema, not elsewhere classified Current Visit: Yes Status: Acute Code(s): I89.0 - LYMPHEDEMA, NOT ELSEWHERE CLASSIFIED SNOMED Code(s): 310911187
[2023-01-29] MEDS: VANCOMYCIN 2,250 MG in SODIUM CHLORIDE 0.9% 500 ML 500 ML IVPB SCH (12:14)
--- NOTE | 2023-01-29 14:52 | P.PN ---
Subjective Progress Note Date: 01/29/23 Principal diagnosis: Right heel wound and cellulitis Patient is a 62-year-old female with a past medical history significant for hypertension history of uterine cancer status post hysterectomy in May 2019 Osteoarthritis patient did develop a wound on the right heel area admitted to the hospital concerning for worsening wound and cellulitis. on today's evaluation that is 01/29/2023, the patient denies having any fever or any chills patient is breathing comfortably no chest pain shortness of breath or cough no abdominal pain or any worsening pain to the right leg or drainage from the right heel wound Objective - Vital Signs Vital signs: Vital Signs Temp 97.6 F 01/29/23 07:47 Pulse 73 01/29/23 07:47 Resp 18 01/29/23 07:47 BP 129/69 01/29/23 07:47 Pulse Ox 94 L 01/29/23 07:47 FiO2 Intake & Output 01/28/23 01/29/23 01/29/23 18:59 06:59 18:59 Intake Total 100 Balance 100 Weight 147.418 kg Intake: Oral 100 Other: # Voids 3 - Exam GENERAL DESCRIPTION: A middle-aged female lying in bed in no distress RESPIRATORY SYSTEM: Unlabored breathing , decreased breath sounds at bases HEART: S1 S2 regular rate and rhythm , ABDOMEN: Soft , no tenderness EXTREMITIES: Right leg redness has decreased, right heel Wound is dressed no drainage on the dressing - Labs CBC & Chem 7: 01/29/23 04:39 01/29/23 04:39 Labs: Abnormal Lab Results - Last 24 Hours (Table) 01/28/23 01/28/23 01/28/23 Range/Units 10:58 10:58 10:58 RBC (4.10-5.20) X 10*6/uL Hgb (12.0-15.0) g/dL Hct (37.2-46.3) % MCV (80.0-97.0) fL MCH (27.0-32.0) pg RDW (11.5-14.5) % Immature Gran # (0.00-0.04) X 10*3/uL BUN 31 H (7-17) mg/dL Creatinine 1.54 H (0.52-1.04) mg/dL Est GFR (CKD-EPI)AfAm (60.0-200.0) Est GFR (CKD-EPI)NonAf (60.0-200.0) Glucose 166 H (74-99) mg/dL Hemoglobin A1c 6.5 H (0.0-6.0) % Plasma Lactic Acid Yosvany 2.9 H* (0.7-2.0) mmol/L Total Bilirubin (0.30-1.20) mg/dL C-Reactive Protein 2.8 H (<1.0) mg/dL Total Protein (6.2-8.2) g/dL Albumin (3.8-4.9) g/dL 01/29/23 01/29/23 Range/Units 04:39 04:39 RBC 3.01 L (4.10-5.20) X 10*6/uL Hgb 9.8 L (12.0-15.0) g/dL Hct 30.0 L (37.2-46.3) % MCV 99.7 H (80.0-97.0) fL MCH 32.6 H (27.0-32.0) pg RDW 15.3 H (11.5-14.5) % Immature Gran # 0.09 H (0.00-0.04) X 10*3/uL BUN (7-17) mg/dL Creatinine (0.52-1.04) mg/dL Est GFR (CKD-EPI)AfAm 49.6 L (60.0-200.0) Est GFR (CKD-EPI)NonAf 42.8 L (60.0-200.0) Glucose 125 H (74-99) mg/dL Hemoglobin A1c (0.0-6.0) % Plasma Lactic Acid Yosvany (0.7-2.0) mmol/L Total Bilirubin 0.20 L (0.30-1.20) mg/dL C-Reactive Protein (<1.0) mg/dL Total Protein 5.8 L (6.2-8.2) g/dL Albumin 3.7 L (3.8-4.9) g/dL Microbiology - Last 24 Hours (Table) 01/28/23 11:54 Gram Stain - Preliminary Foot - Right Wound Culture - Preliminary Assessment and Plan (1) Cellulitis of right foot Current Visit: Yes Status: Acute Code(s): L03.115 - CELLULITIS OF RIGHT LOWER LIMB SNOMED Code(s): 147054865 (2) Right foot ulcer Current Visit: Yes Status: Acute Code(s): L97.519 - NON-PRS CHRONIC ULCER OTH PRT RIGHT FOOT W UNSP SEVERITY SNOMED Code(s): 682704609 Plan: 1patient with a right heel infected pressure ulcer with secondary cellulitis involving the right lower extremity failing outpatient oral Bactrim DS therapy 2patient with the mild renal insufficiency and high risk of nephrotoxicity from vancomycin and Zosyn combination 3-local wound culture has been obtained which are currently pending 4patient to continue with Unasyn and vancomycin while watching her kidney function closely Time with Patient: Less than 30
--- NOTE | 2023-01-29 17:17 | P.PN ---
Subjective Progress Note Date: 01/29/23 This is a 62-year-old female patient of Dr. Cohen who presented with concerns of nonhealing wounds to right heel. Patient was sent to ER via wound care clinic. Patient reports that she has been dealing with this wound for approximately 6 months without any improvement. Patient has been on outpatient antibiotics. Patient has past medical history of uterine cancer in May 2019 with hysterectomy, hypertension, osteoarthritis and depression. For x-ray completed showing marked generalized soft tissue swelling suggesting cellulitis this appears to be a plantar ulcer no radiographic evidence of osteo-myelitis at this time. WBC 9.5. Creatinine 1.5 for about 31 this does appear chronic for patient. Patient denies being diabetic will check hemoglobin A1c. Patient started on Zosyn and vancomycin. Infectious disease and wound care service is consulted. Current vital signs of 98.1, heart rate 68, respiratory rate 18 blood pressure 113/69 with a pulse ox 98% on room air On 01/29/2023 patient was seen and examined on the medical floor she is alert and oriented 3 in no apparent distress there is no fever or chills no headache or dizziness no chest pain no shortness of breath no cough no nausea or vomiting no abdominal pain no diarrhea and no urinary symptoms. Patient remains on IV antibiotics, will follow closely Objective - Vital Signs Vital signs: Vital Signs Temp 97.6 F 01/29/23 07:47 Pulse 73 01/29/23 07:47 Resp 18 01/29/23 07:47 BP 129/69 01/29/23 07:47 Pulse Ox 94 L 01/29/23 07:47 FiO2 Intake & Output 01/28/23 01/29/23 01/29/23 18:59 06:59 18:59 Intake Total 100 Balance 100 Weight 147.418 kg Intake: Oral 100 Other: # Voids 3 - Exam In general patient is alert and oriented 3 in no distress Head normocephalic and atraumatic Neck supple no JVD no goiter Lungs clear to auscultation bilaterally no wheezing or crackles Heart regular rate and rhythm S1-S2, no rub or gallop Abdomen is soft nontender nondistended positive bowel sounds no hepatosplenomegaly Extremities no edema. Large quarter size unstageable also to right heel. Erythema noted to [facility] no gross focal deficit - Labs CBC & Chem 7: 01/29/23 04:39 01/29/23 04:39 Labs: Abnormal Lab Results - Last 24 Hours (Table) 01/28/23 01/28/23 01/28/23 Range/Units 10:58 10:58 10:58 RBC 3.43 L (3.80-5.40) m/uL Hgb (12.0-15.0) g/dL Hct 33.1 L (34.0-46.0) % MCV (80.0-97.0) fL MCH (27.0-32.0) pg RDW 15.8 H (11.5-15.5) % Immature Gran # (0.00-0.04) X 10*3/uL BUN 31 H (7-17) mg/dL Creatinine 1.54 H (0.52-1.04) mg/dL Glucose 166 H (74-99) mg/dL Hemoglobin A1c (0.0-6.0) % Plasma Lactic Acid Yosvany 2.9 H* (0.7-2.0) mmol/L C-Reactive Protein 2.8 H (<1.0) mg/dL 01/28/23 01/29/23 Range/Units 10:58 04:39 RBC 3.01 L (3.80-5.40) m/uL Hgb 9.8 L (12.0-15.0) g/dL Hct 30.0 L (34.0-46.0) % MCV 99.7 H (80.0-97.0) fL MCH 32.6 H (27.0-32.0) pg RDW 15.3 H (11.5-15.5) % Immature Gran # 0.09 H (0.00-0.04) X 10*3/uL BUN (7-17) mg/dL Creatinine (0.52-1.04) mg/dL Glucose (74-99) mg/dL Hemoglobin A1c 6.5 H (0.0-6.0) % Plasma Lactic Acid Yosvany (0.7-2.0) mmol/L C-Reactive Protein (<1.0) mg/dL Assessment and Plan Assessment: 1. Right foot ulcer with failed outpatient treatment 2. Cellulitis to right lower extremity 3. History of uterine cancer in 2019 with hysterectomy 4. History of osteoarthritis 5. History of essential hypertension 6. History of sleep apnea 7. History of depression DVT prophylaxis Lovenox. GI prophylaxis Protonix Blood culture ordered Foot x-ray negative for osteomyelitis Repeat labs ordered Infectious disease and wound care service is consulted
[2023-01-30] MEDS: AMPICILLIN-SULBACTAM 3 GM in SODIUM CHLORIDE 0.9% 100 ML IVPB SCH ×3 (08:43→23:38)
[2023-01-30] MEDS: METOPROLOL SUCCINATE (ER) 50 MG TAB.ER.24H PO SCH (08:44)
[2023-01-30] MEDS: FUROSEMIDE 40 MG TAB PO SCH ×2 (08:44→16:01)
[2023-01-30] MEDS: allopurinoL 300 MG TAB PO SCH (08:44)
[2023-01-30] MEDS: PANTOPRAZOLE 40 MG TABLET PO SCH (08:44)
[2023-01-30] MEDS: ENOXAPARIN 40 MG/0.4 ML SYRINGE SQ SCH (08:44)
[2023-01-30] MEDS: metOLazone 2.5 MG TAB PO SCH (08:44)
[2023-01-30] MEDS: POTASSIUM CHLORIDE ER 20 MEQ TAB.ER PO SCH ×2 (08:44→20:52)
[2023-01-30] MEDS: ESCITALOPRAM 20 MG TAB PO SCH (08:45)
[2023-01-30] MEDS: methocarbamoL 500 MG TAB PO SCH ×2 (08:45→20:52)
--- NOTE | 2023-01-30 09:32 | P.PN ---
Subjective Progress Note Date: 01/30/23 This is a 62-year-old female patient of Dr. Cohen who presented with concerns of nonhealing wounds to right heel. Patient was sent to ER via wound care clinic. Patient reports that she has been dealing with this wound for approximately 6 months without any improvement. Patient has been on outpatient antibiotics. Patient has past medical history of uterine cancer in May 2019 with hysterectomy, hypertension, osteoarthritis and depression. For x-ray completed showing marked generalized soft tissue swelling suggesting cellulitis this appears to be a plantar ulcer no radiographic evidence of osteo-myelitis at this time. WBC 9.5. Creatinine 1.5 for about 31 this does appear chronic for patient. Patient denies being diabetic will check hemoglobin A1c. Patient started on Zosyn and vancomycin. Infectious disease and wound care service is consulted. Current vital signs of 98.1, heart rate 68, respiratory rate 18 blood pressure 113/69 with a pulse ox 98% on room air On 01/29/2023 patient was seen and examined on the medical floor she is alert and oriented 3 in no apparent distress there is no fever or chills no headache or dizziness no chest pain no shortness of breath no cough no nausea or vomiting no abdominal pain no diarrhea and no urinary symptoms. Patient remains on IV antibiotics, will follow closely 01/30/2023 patient is alert and oriented 3. Patient remains on vancomycin and Unasyn. Lactic acid improving to 1.6. Creatinine 1.3 bun 25. Infectious disease and wound care services are following. Current vital signs temp 98.0, heart rate 75, respiratory rate 16, blood pressure 121/60 with pulse ox 94% on room air Objective - Vital Signs Vital signs: Vital Signs Temp 98.0 F 01/30/23 07:25 Pulse 75 01/30/23 07:25 Resp 16 01/30/23 07:25 BP 121/68 01/30/23 07:25 Pulse Ox 94 L 01/30/23 07:25 FiO2 Intake & Output 01/29/23 01/30/23 01/30/23 18:59 06:59 18:59 Intake Total 590 Balance 590 Intake: Oral 590 Other: Voiding Method Toilet Toilet # Voids 2 - Exam In general patient is alert and oriented 3 in no distress Head normocephalic and atraumatic Neck supple no JVD no goiter Lungs clear to auscultation bilaterally no wheezing or crackles Heart regular rate and rhythm S1-S2, no rub or gallop Abdomen is soft nontender nondistended positive bowel sounds no hepatosplenomegaly Extremities no edema. Large quarter size unstageable also to right heel. Erythema noted to [facility] no gross focal deficit - Labs CBC & Chem 7: 01/29/23 04:39 01/29/23 04:39 Labs: Abnormal Lab Results - Last 24 Hours (Table) 01/29/23 01/29/23 Range/Units 04:39 04:39 RBC 3.01 L (4.10-5.20) X 10*6/uL Hgb 9.8 L (12.0-15.0) g/dL Hct 30.0 L (37.2-46.3) % MCV 99.7 H (80.0-97.0) fL MCH 32.6 H (27.0-32.0) pg RDW 15.3 H (11.5-14.5) % Immature Gran # 0.09 H (0.00-0.04) X 10*3/uL Est GFR (CKD-EPI)AfAm 49.6 L (60.0-200.0) Est GFR (CKD-EPI)NonAf 42.8 L (60.0-200.0) Glucose 125 H (70-110) mg/dL Total Bilirubin 0.20 L (0.30-1.20) mg/dL Total Protein 5.8 L (6.2-8.2) g/dL Albumin 3.7 L (3.8-4.9) g/dL Microbiology - Last 24 Hours (Table) 01/28/23 11:00 Blood Culture - Preliminary Blood No Growth after 24 hours 01/28/23 10:45 Blood Culture - Preliminary Blood No Growth after 24 hours 01/28/23 11:54 Gram Stain - Preliminary Foot - Right Wound Culture - Preliminary Assessment and Plan Assessment: 1. Right foot ulcer with failed outpatient treatment 2. Cellulitis to right lower extremity 3. History of uterine cancer in 2019 with hysterectomy 4. History of osteoarthritis 5. History of essential hypertension 6. History of sleep apnea 7. History of depression DVT prophylaxis Lovenox. GI prophylaxis Protonix Blood culture ordered Foot x-ray negative for osteomyelitis Repeat labs ordered Infectious disease and wound care service is consulted
[2023-01-30 10:09] LABS: African American GFR (CKD) 50.6 (60.0-200.0); Albumin 3.8 g/dL (3.8-4.9); Albumin/Globulin Ratio 1.73 (1.60-3.17); BUN/Creat Ratio 17.69 Ratio (12.00-20.00); Calcium 9.1 mg/dL (8.7-10.3); Globulin 2.2 g/dL (1.6-3.3); Non-African American GFR(CKD) 43.6 (60.0-200.0); Potassium 3.6 mmol/L (3.5-5.5); Total Bilirubin 0.2 mg/dL (0.30-1.20)
[2023-01-30 10:27] LABS: Basophils # (A) 0.04 X 10*3/uL (0.00-0.10); Basophils % (A) 0.5 %; Eosinophils # (A) 0.16 X 10*3/uL (0.04-0.35); Eosinophils % (A) 2.1 %; HCT 31.1 % (37.2-46.3); HGB 9.7 g/dL (12.0-15.0); Immature Grans, Automated 2.2 %; Lymphocytes # (A) 1.66 X 10*3/uL (0.90-5.00); Lymphocytes % (A) 21.7 %; MCH 31.2 pg (27.0-32.0); MCHC 31.2 g/dL (32.0-37.0); Mean Platelet Volume 10.8 fL (9.5-12.2); Monocytes # (A) 0.51 X 10*3/uL (0.20-1.00); Monocytes % (A) 6.7 %; NRBC Per 100 WBC 0 /100 WBCS (0.0-0.0); Neutrophils # (A) 5.11 X 10*3/uL (1.80-7.70); Neutrophils % (A) 66.8 %; Platelet Count 192 X 10*3/uL (140-440); RBC 3.11 X 10*6/uL (4.10-5.20); RDW 15.3 % (11.5-14.5); WBC 7.65 X 10*3/uL (4.50-10.00)
[2023-01-30] MEDS: VANCOMYCIN 2,250 MG in SODIUM CHLORIDE 0.9% 500 ML 500 ML IVPB SCH (12:43)
--- NOTE | 2023-01-30 16:22 | P.PN ---
Subjective Progress Note Date: 01/30/23 Principal diagnosis: Right heel wound and cellulitis Patient is a 62-year-old female with a past medical history significant for hypertension history of uterine cancer status post hysterectomy in May 2019 Osteoarthritis patient did develop a wound on the right heel area admitted to the hospital concerning for worsening wound and cellulitis. on today's evaluation that is 01/30/2023, the patient remains to be afebrile, the patient is breathing comfortably on room air the, the patient denies chest pain shortness of breath or cough no abdominal pain or any worsening pain to the right leg or drainage from the right heel wound Objective - Vital Signs Vital signs: Vital Signs Temp 98.0 F 01/30/23 07:25 Pulse 75 01/30/23 07:25 Resp 16 01/30/23 07:25 BP 121/68 01/30/23 07:25 Pulse Ox 94 L 01/30/23 07:25 FiO2 Intake & Output 01/29/23 01/30/23 01/30/23 18:59 06:59 18:59 Intake Total 590 Balance 590 Intake: Oral 590 Other: Voiding Method Toilet Toilet # Voids 2 - Exam GENERAL DESCRIPTION: A middle-aged female lying in bed in no distress RESPIRATORY SYSTEM: Unlabored breathing , decreased breath sounds at bases HEART: S1 S2 regular rate and rhythm , ABDOMEN: Soft , no tenderness EXTREMITIES: Right leg redness has decreased, right heel Wound is dressed no drainage on the dressing - Labs CBC & Chem 7: 01/30/23 05:54 01/30/23 05:54 Labs: Abnormal Lab Results - Last 24 Hours (Table) 01/30/23 01/30/23 Range/Units 05:54 05:54 RBC 3.11 L (4.10-5.20) X 10*6/uL Hgb 9.7 L (12.0-15.0) g/dL Hct 31.1 L (37.2-46.3) % MCV 100.0 H (80.0-97.0) fL MCHC 31.2 L (32.0-37.0) g/dL RDW 15.3 H (11.5-14.5) % Immature Gran # 0.17 H (0.00-0.04) X 10*3/uL Est GFR (CKD-EPI)AfAm 50.6 L (60.0-200.0) Est GFR (CKD-EPI)NonAf 43.6 L (60.0-200.0) Glucose 119 H (70-110) mg/dL Total Bilirubin 0.20 L (0.30-1.20) mg/dL Total Protein 6.0 L (6.2-8.2) g/dL Microbiology - Last 24 Hours (Table) 01/28/23 11:00 Blood Culture - Preliminary Blood No Growth after 24 hours 01/28/23 10:45 Blood Culture - Preliminary Blood No Growth after 24 hours 01/28/23 11:54 Gram Stain - Preliminary Foot - Right Wound Culture - Preliminary Assessment and Plan (1) Cellulitis of right foot Current Visit: Yes Status: Acute Code(s): L03.115 - CELLULITIS OF RIGHT LOWER LIMB SNOMED Code(s): 731885758 (2) Right foot ulcer Current Visit: Yes Status: Acute Code(s): L97.519 - NON-PRS CHRONIC ULCER OTH PRT RIGHT FOOT W UNSP SEVERITY SNOMED Code(s): 758904548 Plan: 1patient with a right heel infected pressure ulcer with secondary cellulitis involving the right lower extremity failing outpatient oral Bactrim DS therapy 2patient with the mild renal insufficiency and high risk of nephrotoxicity from vancomycin and Zosyn combination 3-local wound culture has been obtained which are so far negative for any resistant pathogen 4patient to continue with Unasyn however we will discontinue vancomycin and plan to finish therapy with oral antibiotics Time with Patient: Less than 30
[2023-01-30] MEDS: ACETAMINOPHEN TAB 325 MG TAB PO PRN (20:52)
[2023-01-31 07:54] VITALS: PULSE 69; TEMP 97.4
[2023-01-31] MEDS: AMPICILLIN-SULBACTAM 3 GM in SODIUM CHLORIDE 0.9% 100 ML IVPB SCH ×3 (08:14→12:58)
[2023-01-31] MEDS: methocarbamoL 500 MG TAB PO SCH (08:14)
[2023-01-31] MEDS: METOPROLOL SUCCINATE (ER) 50 MG TAB.ER.24H PO SCH (08:15)
[2023-01-31] MEDS: FUROSEMIDE 40 MG TAB PO SCH (08:15)
[2023-01-31] MEDS: PANTOPRAZOLE 40 MG TABLET PO SCH (08:15)
[2023-01-31] MEDS: allopurinoL 300 MG TAB PO SCH (08:15)
[2023-01-31] MEDS: ENOXAPARIN 40 MG/0.4 ML SYRINGE SQ SCH (08:15)
[2023-01-31] MEDS: POTASSIUM CHLORIDE ER 20 MEQ TAB.ER PO SCH ×2 (08:15→12:57)
[2023-01-31] MEDS: ESCITALOPRAM 20 MG TAB PO SCH (08:15)
[2023-01-31] MEDS: metOLazone 2.5 MG TAB PO SCH (08:15)
[2023-01-31 09:46] LABS: African American GFR (CKD) 61.9 (60.0-200.0); Albumin 3.7 g/dL (3.8-4.9); Albumin/Globulin Ratio 1.61 (1.60-3.17); BUN/Creat Ratio 17.82 Ratio (12.00-20.00); Blood Urea Nitrogen 19.6 mg/dL (9.0-27.0); Calcium 8.7 mg/dL (8.7-10.3); Globulin 2.3 g/dL (1.6-3.3); Non-African American GFR(CKD) 53.4 (60.0-200.0); Potassium 3.1 mmol/L (3.5-5.5); Total Bilirubin 0.2 mg/dL (0.30-1.20)
[2023-01-31 09:56] LABS: Basophils # (A) 0.04 X 10*3/uL (0.00-0.10); Basophils % (A) 0.5 %; Eosinophils % (A) 2.4 %; HGB 9.7 g/dL (12.0-15.0); Lymphocytes # (A) 1.78 X 10*3/uL (0.90-5.00); Lymphocytes % (A) 21.2 %; MCHC 32.3 g/dL (32.0-37.0); Mean Platelet Volume 10.7 fL (9.5-12.2); Monocytes # (A) 0.59 X 10*3/uL (0.20-1.00); NRBC Per 100 WBC 0 /100 WBCS (0.0-0.0); Neutrophils # (A) 5.63 X 10*3/uL (1.80-7.70); Neutrophils % (A) 66.9 %; Platelet Count 194 X 10*3/uL (140-440); RBC 3.03 X 10*6/uL (4.10-5.20); RDW 15.2 % (11.5-14.5); WBC 8.41 X 10*3/uL (4.50-10.00)
[2023-01-31] MEDS ORDERED: Potassium Replacement Protocol 1 EACH MISC MISCELLANE PRN (12:25)
--- NOTE | 2023-01-31 12:42 | P.DS ---
Providers Date of admission: 01/28/23 10:58 Expected date of discharge: 01/31/23 Attending physician: Medina Ching Consults: 01/28/23 10:54 Consult Physician Urgent Consulting Provider: Karina Wise Consult Reason/Comments: right foot infection Do you want consulting provider notified?: Yes Primary care physician: Melita Cohen Hospital Course: Diagnosis on discharge: 1. Right foot ulcer with failed outpatient treatment 2. Cellulitis to right lower extremity 3. History of uterine cancer in 2019 with hysterectomy 4. History of osteoarthritis 5. History of essential hypertension 6. History of sleep apnea 7. History of depression Hospital course: This is a 62-year-old female patient of Dr. Cohen who presented with concerns of nonhealing wounds to right heel. Patient was sent to ER via wound care clinic. Patient reports that she has been dealing with this wound for approximately 6 months without any improvement. Patient has been on outpatient antibiotics. Patient has past medical history of uterine cancer in May 2019 with hysterectomy, hypertension, osteoarthritis and depression. For x-ray completed showing marked generalized soft tissue swelling suggesting cellulitis this appears to be a plantar ulcer no radiographic evidence of osteo-myelitis at this time. WBC 9.5. Creatinine 1.5 for about 31 this does appear chronic for patient. Patient denies being diabetic will check hemoglobin A1c. Patient started on Zosyn and vancomycin. Infectious disease and wound care service is consulted. Current vital signs of 98.1, heart rate 68, respiratory rate 18 blood pressure 113/69 with a pulse ox 98% on room air On 01/29/2023 patient was seen and examined on the medical floor she is alert and oriented 3 in no apparent distress there is no fever or chills no headache or dizziness no chest pain no shortness of breath no cough no nausea or vomiting no abdominal pain no diarrhea and no urinary symptoms. Patient remains on IV antibiotics, will follow closely 01/30/2023 patient is alert and oriented 3. Patient remains on vancomycin and Unasyn. Lactic acid improving to 1.6. Creatinine 1.3 bun 25. Infectious disease and wound care services are following. Current vital signs temp 98.0, heart rate 75, respiratory rate 16, blood pressure 121/60 with pulse ox 94% on room air On 01/31/2023 patient was seen and examined on the medical floor she is alert and oriented 3 in no apparent distress wound culture did not reveal any resistant bacteria patient was evaluated by Dr. Wise and was cleared to be discharged home on oral antibiotic Augmentin, patient is stable she denies any fever or chills no headache or dizziness no chest pain no shortness of breath no cough no nausea or vomiting no abdominal pain no diarrhea and no urinary symptoms. She will follow-up was Dr. Cohen within one week Patient Condition at Discharge: Fair Plan - Discharge Summary New Discharge Prescriptions: New Amoxic-Pot Clav 875-125Mg [Augmentin 875-125] 1 tab PO Q12HR 10 Days #20 tab Continue Metoprolol Succinate (ER) [Toprol XL] 150 mg PO DAILY Escitalopram [Lexapro] 20 mg PO DAILY Celecoxib [CeleBREX] 200 mg PO BID allopurinoL [Zyloprim] 300 mg PO DAILY methocarbamoL [Robaxin] 500 mg PO BID Potassium Chloride ER [K-Dur 20] 20 meq PO BID metOLazone [Zaroxolyn] 2.5 mg PO DAILY Furosemide [Lasix] 40 mg PO BID Discharge Medication List Celecoxib [CeleBREX] 200 mg PO BID 03/03/19 [History] Escitalopram [Lexapro] 20 mg PO DAILY 03/03/19 [History] Metoprolol Succinate (ER) [Toprol XL] 150 mg PO DAILY 03/03/19 [History] allopurinoL [Zyloprim] 300 mg PO DAILY 03/03/19 [History] methocarbamoL [Robaxin] 500 mg PO BID 11/28/19 [History] Furosemide [Lasix] 40 mg PO BID 01/28/23 [History] Potassium Chloride ER [K-Dur 20] 20 meq PO BID 01/28/23 [History] metOLazone [Zaroxolyn] 2.5 mg PO DAILY 01/28/23 [History] Amoxic-Pot Clav 875-125Mg [Augmentin 875-125] 1 tab PO Q12HR 10 Days #20 tab 01/31/23 [Rx] Follow up Appointment(s)/Referral(s): Melita Cohen MD [Primary Care Provider] - 1-2 days (please call to [facility] your appointment on thursday02/02/23) [facility] Visiting Nurse, [NON-STAFF] - 1 Week Patient Instructions/Handouts: Chronic Wound Care (DC)
[2023-01-31] MEDS: ACETAMINOPHEN TAB 325 MG TAB PO PRN (12:57)
[2023-01-31 13:12] VITALS: BP 130/71; RESP 18
--- NOTE | 2023-01-31 22:47 | P.PN ---
Subjective Progress Note Date: 01/31/23 Principal diagnosis: Right heel wound and cellulitis Patient is a 62-year-old female with a past medical history significant for hypertension history of uterine cancer status post hysterectomy in May 2019 Osteoarthritis patient did develop a wound on the right heel area admitted to the hospital concerning for worsening wound and cellulitis. on today's evaluation that is 01/31/2023, the patient continues to be afebrile, the patient is breathing comfortably on room air, the patient denies chest pain shortness of breath or cough no abdominal pain or any worsening pain to the right leg or drainage from the right heel wound, patient is feeling better wants to go home Objective - Vital Signs Vital signs: Vital Signs Temp 97.4 F L 01/31/23 07:12 Pulse 69 01/31/23 07:12 Resp 16 01/31/23 07:12 BP 143/67 01/31/23 07:12 Pulse Ox 94 L 01/31/23 07:12 FiO2 Intake & Output 01/30/23 01/31/23 01/31/23 18:59 06:59 18:59 Intake Total 600 Balance 600 Intake: Intake, IV Titration 600 Amount Ampicillin-Sulbactam 3 gm 100 In Sodium Chloride 0.9% 100 ml @ 200 mls/hr IVPB Q8HR [facility] Rx#:[id number] Vancomycin 2,250 mg In 500 Sodium Chloride 0.9% 500 ml 500 ml @ 167 mls/hr IVPB Q24H [facility] Rx#: [id number] Other: Voiding Method Toilet Toilet # Voids 1 - Exam GENERAL DESCRIPTION: A middle-aged female lying in bed in no distress RESPIRATORY SYSTEM: Unlabored breathing , decreased breath sounds at bases HEART: S1 S2 regular rate and rhythm , ABDOMEN: Soft , no tenderness EXTREMITIES: Right leg redness has decreased, right heel Wound base looks clean does not look deep no foul-smelling drainage - Labs CBC & Chem 7: 01/31/23 04:48 01/31/23 04:48 Labs: Abnormal Lab Results - Last 24 Hours (Table) 01/30/23 01/30/23 Range/Units 05:54 05:54 RBC 3.11 L (4.10-5.20) X 10*6/uL Hgb 9.7 L (12.0-15.0) g/dL Hct 31.1 L (37.2-46.3) % MCV 100.0 H (80.0-97.0) fL MCHC 31.2 L (32.0-37.0) g/dL RDW 15.3 H (11.5-14.5) % Immature Gran # 0.17 H (0.00-0.04) X 10*3/uL Est GFR (CKD-EPI)AfAm 50.6 L (60.0-200.0) Est GFR (CKD-EPI)NonAf 43.6 L (60.0-200.0) Glucose 119 H (70-110) mg/dL Total Bilirubin 0.20 L (0.30-1.20) mg/dL Total Protein 6.0 L (6.2-8.2) g/dL Microbiology - Last 24 Hours (Table) 01/28/23 11:54 Gram Stain - Final Foot - Right Wound Culture - Final 01/28/23 10:45 Blood Culture - Preliminary Blood No Growth after 48 hours 01/28/23 11:00 Blood Culture - Preliminary Blood No Growth after 48 hours Assessment and Plan (1) Cellulitis of right foot Status: Acute Code(s): L03.115 - CELLULITIS OF RIGHT LOWER LIMB SNOMED Code(s): 789110177 (2) Right foot ulcer Status: Acute Code(s): L97.519 - NON-PRS CHRONIC ULCER OTH PRT RIGHT FOOT W UNSP SEVERITY SNOMED Code(s): 893651730 Plan: 1patient with a right heel infected pressure ulcer with secondary cellulitis involving the right lower extremity failing outpatient oral Bactrim DS therapy 2patient with the mild renal insufficiency and high risk of nephrotoxicity from vancomycin and Zosyn combination 3-local wound culture has been obtained which are so far negative for any resistant pathogen 4patient seem to have shown clinical improvement with the Unasyn, the patient will finish therapy with oral Augmentin prescription sent to the pharmacy
== END 2023-01-31 15:16 | disposition home health service (06) | DRG 593 ==
LOC: EC 09:18 → 4SSUR 10:58 → 5NMEDONC 13:34
PROVIDERS: ADMIT Internal Medicine; ATTEND Internal Medicine
DX: L97.412 Non-pressure chronic ulcer of right heel and midfoot with fat layer exposed (principal); E87.20 Acidosis, unspecified; L03.115 Cellulitis of right lower limb; Z68.43 Body mass index [BMI] 50.0-59.9, adult; L97.512 Non-pressure chronic ulcer of other part of right foot with fat layer exposed; G47.30 Sleep apnea, unspecified; E66.9 Obesity, unspecified; F32.A Depression, unspecified; I10 Essential (primary) hypertension; I89.0 Lymphedema, not elsewhere classified; M19.90 Unspecified osteoarthritis, unspecified site; L89.90 Pressure ulcer of unspecified site, unspecified stage; Z79.1 Long term (current) use of non-steroidal anti-inflammatories (NSAID); Z79.899 Other long term (current) drug therapy; Z85.42 Personal history of malignant neoplasm of other parts of uterus; Z90.710 Acquired absence of both cervix and uterus
CPT/HCPCS: 80053; 83036; 83605; 85025; 86140; 87040; 87070; 87075; 87205; 96365; 96366; 96367; 99285